=== PATIENT | male | born 2000 | race Two or more races ===

== ENCOUNTER 2023-04-22 11:49 | Emergency (ER) | payer SELFPAY ==
--- NOTE | ~2023-04-22 | XR_ITS ---
EXAMINATION: XR FINGER, LEFT CLINICAL INFORMATION: Laceration COMPARISON: None available. TECHNIQUE: Three views of the left fifth finger. FINDINGS: Subtle soft tissue irregularity along the lateral aspect of the fifth finger is consistent with reported history of laceration. No associated radiopaque foreign body. No underlying osseous injury. Other visualized portions of the left hand are unremarkable. XR/XR finger LT min 2V IMPRESSION: Soft tissue laceration without fracture or radiopaque foreign body.
--- NOTE | 2023-04-22 13:09 | ED.GENADULT ---
HPI - General Adult General Chief complaint: Skin/Abscess/Foreign Body Stated complaint: L pinky laceration/ work injury Time Seen by Provider: 04/22/23 14:00 Source: patient and historical interpreter Mode of arrival: ambulatory Limitations: no limitations History of Present Illness HPI narrative: 23-year-old male with no significant pmhx presents to the ED today with left pinky laceration after cutting himself on metal at work prior to arrival. Admits to welding a piece of metal when the sharp edge of a metal cut his left pinky. States that he immediately washed the laceration out. First aid was performed by a on-site staff. He does not believe that there are any scraps of metal or other FB in the laceration. Tetanus not UTD. Denies numbness, tingling, weakness to the left upper extremity. Related Data Allergies Allergy/AdvReac Type Severity Reaction Status Date / Time No Known Allergies Allergy Verified 04/22/23 13:09 Review of Systems Review of Systems: Constitutional: No fever, chills, fatigue, night sweats, weight changes ENT/Mouth: No ear pain, hearing loss, nasal congestion, sinus pain, rhinorrhea, sore throat Eyes: No eye pain, swelling, redness, vision changes, discharge Cardio: No chest pain, palpitations, WILLIAMSON, orthopnea, peripheral edema Pulm: No SOB, cough, sputum, wheezing, dyspnea, hemoptysis GI: No nausea, vomiting, hematemesis, abdominal pain, diarrhea, constipation, hematochezia, melena : No irregular bleeding, dysuria, frequency, urgency, hesitancy MSK: No back pain, neck pain, joint pain, myalgias Skin: No lesions, rashes, +left pinky laceration Neuro: No weakness, numbness, paresthesias, LOC, dizziness, headache All other systems reviewed and are negative. ON LICENSE OF [facility] Past Medical History Attestation statement: The following information was validated with the patient. Source: old records reviewed and nursing notes reviewed Social History Social History Advance Directives: No Advance Directives Information Provided: No Physical Exam ED Vital Signs: Vital Signs - 24 hr 04/22/23 13:11 Temperature 97.8 F Pulse Rate 64 Respiratory Rate 18 Blood Pressure 148/70 H Pulse Oximetry 98 BMI result Body Mass Index 29.0 Vital signs stable Const General: cooperative, healthy appearing, comfortable, no acute distress, alert and awake Orientation/consciousness: patient oriented x3 Limitations: no limitations HENMT Head: Yes normal to inspection Ears: hearing grossly normal bilaterally General nose exam: Normal external nose present Eyes General: appearance normal, both eyes and all related structures Conjunctivae: conjunctivae normal Sclerae: sclerae normal Pupils: Equal, round and reactive pupils present Resp Effort & Inspection: normal respiratory effort Auscultation: clear to auscultation bilaterally Cardio Rate: regular rate Rhythm: regular rhythm Peripheral pulses: radial pulses present and ulnar radial pulses present Skin Other: Refer to photo below. + There is a 1 inch superficial laceration in the shape of a semi-sleetmute noted to the dorsal aspect of the left 5th digit between the MCP and DIP. No active bleeding. No visible or palpable foreign body. No palpable fluctuance. No involvement of deeper structures. Neuro General: patient oriented x3, gait normal and moves all extremities Cranial nerves: Yes CN's II-XII intact bilaterally and Yes Equal, round and reactive pupils present Extrem Other: + Full ROM intact to PIP, DIP and MCP of 5th digit. Finger to thumb opposition intact. Normal capillary refill. 2+ radial and ulnar pulses b/l. General: Yes normal to inspection Course Course Course Narrative: RME- 23 year old male presents for evaluation of a left 5th finger laceration that happened this morning while at work.Needs Tetanus Reevaluation(s) Reevaluation #1: 1711-- 5 sutures placed to laceration on patient's left 5th digit. Patient tolerated procedure well. Tetanus has been updated. X-ray of left 5th digit without fracture, dislocation, foreign body. Informed patient of his x-ray results and need to return to the ED in 7 days to have the sutures removed. Discussed strict return precautions. All questions answered at this time. Patient is agreeable with disposition and stable for discharge. Medications Administered Discontinued Medications Generic Name Dose Route Start Last Admin Trade Name Freq PRN Reason Stop Dose Admin Diphtheria/Tetanus/Acell Pertussis 0.5 ml 04/22/23 13:12 04/22/23 14:17 Diphth,Pertus(Acell),Tet Adult 0.5 Ml Syringe IM 04/22/23 13:13 0.5 ml .ONCE ONE Administration Lidocaine HCl 5 ml 04/22/23 14:47 04/22/23 14:57 Lidocaine Hcl 1 % Mpf 5 Ml Vial INFILTRATI 04/22/23 14:48 5 ml ONCE ONE Administration Procedures Laceration Laceration 1: Site: hand (5th digit) Side (If applicable): left Size (cm): 2.5 Description: linear Depth: simple, single layer Local Anesthetic: lidocaine 1% Amount of anesthesia used (mL): 5 Pre-repair: wound explored, irrigated extensively, deep structures intact and extensive debridement Skin layer closed with: nylon Size (cm): 4-0 Number of sutures: 5 Technique: simple, interrupted Medical Decision Making Medical Decision Making MDM Narrative: 23-year-old male with no significant pmhx presents to the ED today with left pinky laceration after cutting himself on metal at work prior to arrival. Vital signs stable, afebrile. On exam there is a 1 inch superficial laceration in the shape of a semi-sleetmute noted to the dorsal aspect of the left 5th digit between the MCP and DIP. No active bleeding. No visible or palpable foreign body. No palpable fluctuance. No involvement of deeper structures. Full ROM intact to PIP, DIP and MCP of 5th digit. Finger to thumb opposition intact. NV intact distally. Clinical concern for superficial laceration vs fracture vs FB. Unlikely dislocation, open fracture, osteo, cellulitis, tendon rupture. Plan for x-ray, tetanus and laceration repair. Differential Diagnosis Differential Diagnoses: The differential diagnosis associated with the presentation includes As above. Admission/Observation Not indicated. Independent Interpretation I performed an independent interpretation of an: Plain X-Ray Interpretation: X-ray left 5th digit without acute fracture, dislocation or foreign body, agree with radiologist's interpretation. Radiology Impression Discussion of test interpretation with radiology: I have reviewed the radiologist's reading. Radiologist Impression: XR finger LT min 2V IMPRESSION: Soft tissue laceration without fracture or radiopaque foreign body. External Record Review External record reviewed: Inpatient record Critical Care Time Critical Care Time Critical Care Time: No Discharge Plan Discharge Clinical Impression: Laceration of left little finger Patient Disposition: Home, Self-Care Instructions: Care For Your Stitches (ED), Laceration (ED) Additional Instructions: Xray of your finger did not show acute fracture or foreign body. Your laceration was closed with 5 stitches today. Please return to the emergency department in 7 days to have the stitches removed. Keep stitches clean dry and intact her 24 hours. You may apply bacitracin or Neosporin to them as needed. Return to the ED if your wound opens, you spike a fever or the wound begins to drain as these may be signs of infection. In the case of an emergency call 911. Follow up with your primary care provider as needed. La radiograf?a de mars dedo no mostr? fractura aguda ni cuerpo extra?o. Mars laceraci?n fue cerrada con 5 puntos hoy. Regrese al departamento de emergencias en 7 d?as para que le retiren los puntos. Mantenga los puntos limpios, secos e intactos ru 24 horas. Puede aplicarles bacitracina o Neosporin seg?n sea necesario. Regrese al servicio de urgencias si mars herida se abre, tiene fiebre o la herida comienza a drenar, ya que estos pueden ser signos de infecci?n. En tristan de emergencia llame al 911. Crow un seguimiento con mars proveedor de atenci?n primaria seg?n sea necesario. Referrals: Physician,None [Primary Care Provider] - Stand Alone Forms: Work/School Release Print Language: Bahamian
[2023-04-22 13:11] VITALS: BP 148/70; PULSE 64; RESP 18; TEMP 36.6; O2SAT 98; BMI 29.0
--- NOTE | 2023-04-22 14:00 | ED_ITS ---
HPI - Wound/Laceration General Chief Complaint: Skin/Abscess/Foreign Body Stated Complaint: L pinky laceration/ work injury Time Seen by Provider: 04/22/23 14:00 Source: patient Mode of arrival: ambulatory Limitations: no limitations History of Present Illness HPI narrative: 23 year old male with no significant pmhx presenting to the ED today with complaint of left pinky laceration. Related Data Allergies Allergy/AdvReac Type Severity Reaction Status Date / Time No Known Allergies Allergy Verified 04/22/23 13:09 Review of Systems Review of Systems: Constitutional: No fever, chills, fatigue, night sweats, weight changes ENT/Mouth: No ear pain, hearing loss, nasal congestion, sinus pain, rhinorrhea, sore throat Eyes: No eye pain, swelling, redness, vision changes, discharge Cardio: No chest pain, palpitations, [place]IAMSON, orthopnea, peripheral edema Pulm: No SOB, cough, sputum, wheezing, dyspnea, hemoptysis GI: No nausea, vomiting, hematemesis, abdominal pain, diarrhea, constipation, hematochezia, melena : No irregular bleeding, dysuria, frequency, urgency, hesitancy, hematuria, flank pain, urinary flow changes MSK: No back pain, neck pain, joint pain, myalgias Skin: No lesions, rashes Neuro: No weakness, numbness, paresthesias, LOC, dizziness, headache All other systems reviewed and are negative. [facility] Past Medical History Attestation statement: The following information was validated with the patient. Source: old records reviewed and nursing notes reviewed Social History Social History Advance Directives: No Advance Directives Information Provided: No Physical Exam Vital Signs: Vital Signs: Last Vital Signs Temp 97.8 F 04/22/23 13:11 Pulse 64 04/22/23 13:11 Resp 18 04/22/23 13:11 BP 148/70 H 04/22/23 13:11 Pulse Ox 98 04/22/23 13:11 BMI result Body Mass Index 29.0 Vital signs stable Const: General: cooperative, no acute distress, alert and awake Orientation/consciousness: patient oriented x3 Limitations: no limitations HEENT: Head: Yes normal to inspection Ears: hearing grossly normal bilaterally General nose exam: Normal external nose present Eyes: General: appearance normal, both eyes and all related structures Neck: Neck: Yes normal visual inspection and Yes no meningeal signs Chest: Chest palpation & inspection: normal inspection of the chest Resp: Effort & Inspection: normal respiratory effort Auscultation: clear to auscultation bilaterally Cardio: Rate: regular rate Rhythm: regular rhythm Heart sounds: S1 normal heart sound present and S2 normal heart sound present Peripheral pulses: Peripheral pulses 2+ throughout GI: Inspection: Yes normal to inspection Palpation (GI): Soft to palpation, nontender, no guarding and hepatosplenomegaly present : General: Yes no CVA tenderness Back/Spine/Pelvis: Back: no CVA tenderness Skin: General skin exam: no rashes or lesions noted Neuro: General: patient oriented x3, gait normal, moves all extremities and no meningeal signs Cranial nerves: Yes CN's II-XII intact bilaterally Extrem: General: Yes normal to inspection and Yes full ROM Medications Administered Discontinued Medications Generic Name Dose Route Start Last Admin Trade Name Freq PRN Reason Stop Dose Admin Diphtheria/Tetanus/Acell Pertussis 0.5 ml 04/22/23 13:12 04/22/23 14:17 Diphth,Pertus(Acell),Tet Adult 0.5 Ml Syringe IM 04/22/23 13:13 0.5 ml .ONCE ONE Administration Lidocaine HCl 5 ml 04/22/23 14:47 04/22/23 14:57 Lidocaine Hcl 1 % Mpf 5 Ml Vial INFILTRATI 04/22/23 14:48 5 ml ONCE ONE Administration Medical Decision Making Differential Diagnosis Differential Diagnoses: The differential diagnosis associated with the presentation includes Admission/Observation Consideration of admission/observation: Escalation of care including admission/observation considered Lab Data MDM Lab Attestation statement: I reviewed the patient's lab results. Radiology Impression Discussion of test interpretation with radiology: I have reviewed the radiologist's reading. External Record Review External record reviewed: Inpatient record Procedures Laceration Laceration 1: Site: hand (left 5th digit) Side (If applicable): left Size (cm): 2.5 Description: linear Depth: simple, single layer Local Anesthetic: lidocaine 1% Amount of anesthesia used (mL): 5 Pre-repair: wound explored, irrigated extensively, deep structures intact and extensive debridement Skin layer closed with: nylon Size (cm): 4-0 Number of sutures: 5 Technique: simple, interrupted Critical Care Time Critical Care Time Critical Care Time: No Discharge Plan Discharge Clinical Impression: Laceration of left little finger Patient Disposition: Home, Self-Care Instructions: Laceration (ED), Care For Your Stitches (ED) Additional Instructions: Xray of your finger did not show acute fracture or foreign body. The laceration was closed with 5 stitches today. Please return to the emergency department in 7 days to have the stitches removed. Return to the ED if your wound opens, you spike a fever or the wound begins to drain. In the case of an emergency call 911.
[2023-04-22] MEDS: Diphth,Pertus(ACell),Tet Adult 0.5 ML SYRINGE IM (14:17)
--- NOTE | 2023-04-22 14:24 | PC.NURSE ---
medication administered per provider. pt resting comfortably in no apparent distress. bleeding controlled on left pinky laceration at this time. finger wrapped in gauze at this time. friend bedside.
[2023-04-22] MEDS: Lidocaine HCl 1 % MPF 5 ML VIAL INFILTRATI (14:57)
--- NOTE | 2023-04-22 14:57 | PC.NURSE ---
lidocaine pulled by this RN and placed bedside on cart for provider's convenience.
== END 2023-04-22 17:49 | disposition home or self-care (01) ==
PROVIDERS: Emergency Provider Emergency Medicine
DX: S61.217A Laceration without foreign body of left little finger without damage to nail, initial encounter (principal); S60.417A Abrasion of left little finger, initial encounter; W26.9XXA Contact with unspecified sharp object(s), initial encounter; Y93.9 Activity, unspecified; Y92.9 Unspecified place or not applicable; Y99.0 Civilian activity done for income or pay; Z23 Encounter for immunization
CPT/HCPCS: 11042; 12041; 73140; 90471; 90715; 99283; 99284